=== PATIENT | female | born 1985 | race Two or more races ===

== ENCOUNTER 2020-04-14 17:59 | Emergency (ER) | payer SELFPAY ==
[~2020-04-14] VITALS: Ht 154.9 cm; Wt 81.6 kg
[2020-04-14 19:42] VITALS: BP 147/101
== END 2020-04-14 20:41 | disposition home or self-care (01) ==
LOC: EDBD 17:59 → ER 18:04
DX: R06.02 Shortness of breath (principal); R07.89 Other chest pain; J02.9 Acute pharyngitis, unspecified; Z20.828 Contact with and (suspected) exposure to other viral communicable diseases
CPT/HCPCS: 71045; 87635